=== PATIENT | female | born 1955 | race Two or more races ===

== ENCOUNTER 2020-07-23 07:18 | Emergency (ER) | payer OTHER ==
--- OUTSIDE RECORDS SUMMARY | 2020-07-23 07:31 | XMS ---
:1955 [facility] Providers Name Role Phone ED STAFF PHYSICIAN Unavailable Unavailable ED STAFF PHYSICIAN Unavailable Unavailable ED STAFF PHYSICIAN Unavailable Unavailable LENNY JAQUEZ Unavailable Unavailable ED STAFF PHYSICIAN Unavailable Unavailable Re-disclosure Warning The records that you are about to access may contain information from federally- assisted alcohol or drug abuse programs. If such information is present, then the following federally mandated warning applies: This information has been disclosed to you from records protected by federal confidentiality rules (42 CFR part 2). The federal rules prohibit you from making any further disclosure of this information unless further disclosure is expressly permitted by the written consent of the person to whom it pertains or as otherwise permitted by 42 CFR part 2. A general authorization for the release of medical or other information is NOT sufficient for this purpose. The Federal rules restrict any use of the information to criminally investigate or prosecute any alcohol or drug abuse patient.The records that you are about to access may contain highly sensitive health information, the redisclosure of which is protected by Article 27-F of the [facility] Public Health law. If you continue you may haveaccess to information: Regarding HIV / AIDS; Provided by facilities licensed or operated by the [facility] Office of Mental Health; or Provided by the [facility] Office for People With Developmental Disabilities. If such information is present, then the following [facility] mandated warning applies: This information has been disclosed to you from confidential records which are protected by state law. State law prohibits you from making any further disclosure of this information without the specific written consent of the person to whom it pertains, or as otherwise permitted by law. Any unauthorized further disclosure in violation of state law may result in a fine or halfway sentence or both. A general authorization for the release of medical or other information is NOT sufficient authorization for further disclosure. Encounters Encounter Providers Location Date Indications Data Source(s ) Emergency Attender: ORIN ED H 06/12/2020 [facility] STAFF 11:05:00 AM EDT Medical C enter PHYSICIANAttender: - 06/12/2020 [facility] STAFF 05:34:00 PM EDT PHYSICIANAttender: STAFF ED STAFF PHYSICIANAdmitter: [facility] ED STAFF PHYSICIAN Patient discharged. Emergency Attender: ED STAFF H 04/12/2020 05:26:00 PM [facility] PHYSICIANAttender: STAFF ED EDT - 04/12/2020 [facility] Center STAFF PHYSICIANAdmitter: ED 07:28:00 PM EDT STAFF PHYSICIANReferrer: STAFF ED STAFF PHYSICIAN Patient discharged. Outpatient Attender: THOMAS GUZMAN 12/12/2019 09:41:00 [facility] SHIUANReferrer: THOMAS JAQUEZ Outpatient Attender: THOMAS GUZMAN 12/05/2019 08:10[facility] SHIUANReferrer: THOMAS JAQUEZ [facility] H 08/27/2019 04:23:00 PM [facility] EDT - 08/27/2019 [facility] Center 11:03:00 PM EDT Patient discharged. Outpatient Attender: THOMAS GUZMAN 05/15/2019 09:41:00 [facility] SHIUANReferrer: THOMAS JAQUEZ Outpatient Attender: THOMAS GUZMAN 02/09/2019 08:42:00 AM [facility] SHIUANReferrer: THOMAS JAQUEZ Medications Medication Brand Start Product Dose Route Administrative Pharm[facility] Indications Reaction Description Data Name Date Form Instructions Instructions Source(s) Ciprofloxac ciprof 1 complet Ryaray nt in 500 MG loxaci [facility] Oral Tablet n HCl Medical ciprofloxac 500 mg Center in HCl 500 Tablet mg Tablet, , Ordered By: Armando marcum By: Evelin Marquez MDDirection Norman s: 1 tablet s, oral every MDDire twelve ctions hours : 1 tablet oral every twelve hours pantoprazol pantop 1 complet Rayray nt e 40 MG razole ed [facility] Delayed 40 mg Medical Release tablet Center Oral Tablet ,delay pantoprazol ed e 40 mg releas tablet,chandana e yed release (/EC (/EC), ), Ordered By: Armando marcum By: Mayelin Silveira PADirection мария s: 1 tablet Adam oral daily a, before PADire breakfast ctions : 1 tablet oral daily before breakf ast loratadine complet [facility] 10 mg [facility] losartan 25 complet [facility] mg Tablet [facility] Insurance Providers Payer name Policy type Policy ID Covered Covered alliance party's Policy P terese / Coverage alliance party ID relationship to Tang Inf ormation type tang GREG [id number] SP [id number] 500 ESSENTIAL PLAN 3 4 O GREG O [id number] 01 [id number] 500 ESSENTIALS-CO MMERCIAL O GREG [id number] SP [id number] 500 HEALTH NON CAP Problems, Conditions, and Diagnoses Code Display Name Description Problem Type Effective Data Dates Source(s) I10 Essential (primary) ESSENTIAL Diagnosis 06/12/2020 [facility] hypertension (PRIMARY) 11:05:00 AM Medical HYPERTENSION EDT Center R10.9 Unspecified UNSPECIFIED Diagnosis 06/12/2020 [facility] abdominal pain ABDOMINAL PAIN 11:05:00 AM Medic al EDT Center F41.9 Anxiety disorder, ANXIETY DISORDER, Diagnosis 04/12/2020 [facility] unspecified UNSPECIFIED 05:26:00 PM Medical EDT Center R07.89 Other chest pain OTHER CHEST PAIN Diagnosis 04/12/2020 int [facility] 05:26:00 PM Medical EDT Center Z12.31 Encounter for ENCNTR SCREEN Diagnosis 12/12/2019 [facility] mammogram MAMMOGRAM FOR 09:41:00 AM M edical for malignant MALIGNANT NEOPLASM EST Eric ter neoplasm of breast OF BREAST K57.90 Diverticulosis of DVRTCLOS OF Diagnosis 08/27/2019 [facility] intestine, part INTEST, PART UNSP, 04:23:00 PM Medical unspecified, W/O PERF OR EDT Center without perforation ABSCESS W/O BLEED or abscess without bleeding 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 08/27/2019 Elizabet zhang [facility] gland, unspecified ADRENAL GLAND, 04:23:00 PM M edical UNSPECIFIED EDT Center N39.0 Urinary tract URINARY TRACT Diagnosis 08/27/2019 [facility] infection, site not INFECTION, SITE 04:23:00 PM Medical specified NOT SPECIFIED EDT Center Z04.89 ENCOUNTER FOR ENCOUNTER FOR Diagnosis 08/27/2019 [facility] EXAMINATION AND EXAMINATION AND 04:23:00 PM Med ical OBSERVATION FOR OTH OBSERVATION FOR EDT Center REASONS OTH REASONS J45.909 Unspecified asthma, UNSPECIFIED Diagnosis 02/09/2019 Elizabet zhang [facility] uncomplicated ASTHMA, 08:42:00 AM Medical UNCOMPLICATED EDT Center Results ID Date Data Source Urinalysis.[id number] 06/12/2020 12:00:00 PM [facility] Name Value Range Interpretation Description Data Sup porting Code Source(s) Document(s ) Glucose NEGATIVE <content [facility] [Mass/volume] styleCode="Adilson Sh[place] in Urine by d">Urine Medical Test strip Glucose Center </content>NEGA TIVE MG/DL<content styleCode="Мария lics"> (NEGATIVE MG/DL)</conten t> Ketones NEGATIVE <content [facility] [Mass/volume] styleCode="Adilson [place]ell in Urine by d">Urine Medical Test strip Ketone Center </content>NEGA TIVE MG/DL<content styleCode="Мария lics"> (NEGATIVE MG/DL)</conten t> UNK NEGATIVE <content [facility] styleCode="Adilson Sh[place]ell d">Urine Medical Bilirubin Center </content>NEGA TIVE <content styleCode="Мария lics"> (NEGATIVE )</content> UNK CLEAR <content [facility] styleCode="Adilson [place]ell d">Urine Medical Clarity Center </content>ANTONIETTA R <content styleCode="Мария lics"> (CLEAR )</content> Color of Urine YELLOW <content [facility] styleCode="Adilson [facility]ell d">Color, Medical Urine Center </content>YELL OW <content styleCode="Мария lics"> (YELLOW )</content> pH of Urine by 4.5-8.0 <content [facility] Test strip styleCode="Adilson Shantell d">Urine pH Medical </content>7.5 Center <content styleCode="Мария lics"> (4.5-8.0 )</content> Specific 1.015-1.02 <content [facility] gravity of 5 styleCode="Adilson Dorant[place] Urine by Test d">Urine Medical strip Specific Center [place] </content>1.02 0 <content styleCode="Мария lics"> (1.015-1.025 )</content> Hemoglobin NEGATIVE <content [facility] [Presence] in styleCode="Adilson Dorantess Urine by Test d">Urine Blood Medical strip </content>TRAC Center E <content styleCode="Мария lics"> (NEGATIVE )</content> Protein NEGATIVE <content [facility] [Mass/volume] styleCode="Adilson Dorant[place] in Urine by d">Urine Medical Test strip Protein Center </content>NEGA TIVE MG/DL<content styleCode="Мария lics"> (NEGATIVE MG/DL)</conten t> UNK 0-3 <content [facility] styleCode="Adilson Shantell d">Urine Red Medical Blood Cell Center </content>3-5 HPF<content styleCode="Мария lics"> (0-3 HPF)</content> UNK 0-3 <content [facility] styleCode="Adilson Shantell d">Urine White Medical Blood Cell Center </content>0-3 HPF<content styleCode="Мария lics"> (0-3 HPF)</content> Leukocyte NEGATIVE <content [facility] esterase styleCode="Adilson Shantell [Presence] in d">Urine Medical Urine by Test Leukocyte Center strip </content>NEGA TIVE <content styleCode="Мария lics"> (NEGATIVE )</content> Urobilinogen 0.2-1.0 <content [facility] [Units/volume] styleCode="Adilsno St[facility] in Urine by d">Urine Medical Test strip Urobilinogen Center </content>0.2 MG/DL<content styleCode="Мария lics"> (0.2-1.0 MG/DL)</conten t> Nitrite NEGATIVE <content [facility] [Presence] in styleCode="Adilson Stinson Urine by Test d">Urine Medical strip Nitrite Center </content>NEGA TIVE <content styleCode="Мария lics"> (NEGATIVE )</content> UNK NEGATIVE <content [facility] styleCode="Adilson Dorantess d">Urine Medical Bacteria Center </content>FEW HPF<content styleCode="Мария lics"> (NEGATIVE HPF)</content> UNK NONE SEEN <content [facility] styleCode="Adilson Dorantess d">Epithelial Medical Cell Center </content>5 - 10 HPF<content styleCode="Мария lics"> (NONE SEEN HPF)</content> ID Date Data Source Liver 06/12/2020 12:00:00 PM EDT [facility] Profile.[id number] Name Value Range Interpretation Description Data Sup porting Code Source(s) Document(s ) Aspartate 14-36 <content [facility] aminotransferase styleCode="Bold"> Lucian hs [Enzymatic Aspartate Medical activity/volume] Aminotransferase Center in Serum or Plasma (AST) </content>22 IU/L<content styleCode="Italic s"> (14-36 IU/L)</content> Bilirubin.total 0.2-1.3 <content [facility] [Mass/volume] in styleCode="Bold"> Lucian hs Serum or Plasma Bilirubin Total Medical </content>0.3 Center MG/DL<content styleCode="Italic s"> (0.2-1.3 MG/DL)</content> Alkaline 38-126 <content [facility] phosphatase styleCode="Bold"> [facility] [Enzymatic Alkaline Medical activity/volume] Phosphatase (ALP) Cente r in Serum or Plasma </content>106 IU/L<content styleCode="Italic s"> (38-126 IU/L)</content> Alanine 7-30 <content [facility] aminotransferase styleCode="Bold"> Lucian hs [Enzymatic Alanine Medical activity/volume] Aminotransferase Center in Serum or Plasma (ALT) </content>19 IU/L<content styleCode="Italic s"> (7-30 IU/L)</content> Albumin 3.5-5.0 <content [facility] [Mass/volume] in styleCode="Bold"> Lucian hs Serum or Plasma Albumin Medical </content>4.5 Center G/DL<content styleCode="Italic s"> (3.5-5.0 G/DL)</content> UNK 0.0-0.3 <content [facility] styleCode="Bold"> [place] Bilirubin, Direct Medical </content>< 0.2 Center MG/DL<content styleCode="Italic s"> (0.0-0.3 MG/DL)</content> ID Date Data Source HematologyRou.[id number] 06/12/2020 12:00:00 PM EDT [facility] 0400 Name Value Range Interpretation Description Data Sup porting Code Source(s) Document(s ) Hemoglobin 12.3-16. <content [facility] [Mass/volume] in 0 styleCode="Bold [facility] Blood ">Hemoglobin Medical </content>13.5 Center G/DL<content styleCode="Ital ics"> (12.3-16.0 G/DL)</content> Erythrocytes 4.0-5.1 <content [facility] [#/volume] in styleCode="Bold [facility] Blood by ">Red Blood Medical Automated count Cell Count Center </content>4.40 MCUMM<content styleCode="Ital ics"> (4.0-5.1 MCUMM)</content > Leukocytes 4.4-11.0 <content [facility] [#/volume] in styleCode="Bold [place]ll Blood by ">White Blood Medical Automated count Cell Count Center </content>4.72 KCUMM<content styleCode="Ital ics"> (4.4-11.0 KCUMM)</content > Hematocrit 36.0-46. <content [facility] [Volume 0 styleCode="Bold [facility] Fraction] of ">Hematocrit Medical Blood by </content>40.8 Center Automated count %<content styleCode="Ital ics"> (36.0-46.0 %)</content> Erythrocyte mean 26.0-34. <content [facility] corpuscular 0 styleCode="Bold [facility] hemoglobin ">Mean Medical [Entitic mass] Corposcular Center by Automated Hemoglobin count </content>30.7 PG<content styleCode="Ital ics"> (26.0-34.0 PG)</content> Erythrocyte 11.5-14. <content [facility] distribution 5 styleCode="Bold [place] width [Ratio] by ">Red Cell Medical Automated count Distribution Center Width </content>12.9 %<content styleCode="Ital ics"> (11.5-14.5 %)</content> Erythrocyte mean 32.0-37. <content [facility] corpuscular 0 styleCode="Bold [facility] hemoglobin ">Mean Corpus. Medical concentration Hgb Center [Mass/volume] by Concentration Automated count (MCHC) </content>33.1 G/DL<content styleCode="Ital ics"> (32.0-37.0 G/DL)</content> Erythrocyte mean 80.0-100 <content [facility] corpuscular .0 styleCode="Bold [facility] volume [Entitic ">Mean Medical volume] by Corpuscular Center Automated count Volume </content>92.7 FL<content styleCode="Ital ics"> (80.0-100.0 FL)</content> Platelets 130-400 <content [facility] [#/volume] in styleCode="Bold [place] Blood by ">Platelet Medical Automated count Count Center </content>340 KCUMM<content styleCode="Ital ics"> (130-400 KCUMM)</content > UNK 0 <content [facility] styleCode="Bold [facility] ">Nucleated Red Medical Blood Cell Center </content>0.0 /100<content styleCode="Ital ics"> (0 /100)</content> UNK 0.0 <content [facility] styleCode="Bold [facility] ">Nucleated Red Medical Blood Cell Center Count </content>0.00 KCUMM<content styleCode="Ital ics"> (0.0 KCUMM)</content > Platelet mean 8.0-11.0 <content [facility] volume [Entitic styleCode="Bold Sh[facility]ell volume] in Blood ">Mean Platelet Medical by Automated Volume Center count </content>9.7 FL<content styleCode="Ital ics"> (8.0-11.0 FL)</content> ID Date Data Source GFR(Creatinine).[id number] 06/12/2020 12:00:00 PM EDT [facility] 0-0400 Name Value Range Interpretation Code Description Data Linda rce(s) Supporting Document(s ) UNK > 60 <content [facility] styleCode="Bold"> Medical Cent er EGFR </content>133 GFR<content styleCode="Italic s"> (> 60 GFR)</content> ID Date Data Source CHMROUTINECCDA.[id number] 06/12/2020 12:00:00 PM EDT [facility] -0400 Name Value Range Interpretation Description Data Sup porting Code Source(s) Document(s ) UNK 30-110 <content [facility] styleCode="Bold Medical ">Amylase Center </content>46 IU/L<content styleCode="Ital ics"> (30-110 IU/L)</content> Lipase 23-300 <content [facility] [Enzymatic styleCode="Bold Medical activity/vo ">Lipase Center lume] in </content>50 Serum or IU/L<content Plasma styleCode="Ital ics"> (23-300 IU/L)</content> ID Date Data Source [facility].[id number] 06/12/2020 12:00:00 PM EDT [facility] Name Value Range Interpretation Description Data Sup porting Code Source(s) Document(s ) Sodium 137-145 <content [facility] [Moles/volume] in styleCode="Bold"> Sammy phs Serum or Plasma Sodium Medical </content>139 Center MEQ/L<content styleCode="Italic s"> (137-145 MEQ/L)</content> Potassium 3.5-5.3 <content [facility] [Moles/volume] in styleCode="Bold"> Sammy phs Serum or Plasma Potassium Medical </content>4.1 Center MEQ/L<content styleCode="Italic s"> (3.5-5.3 MEQ/L)</content> Creatinine 0.5-1.3 <content [facility] [Mass/volume] in styleCode="Bold"> Lucian hs Serum or Plasma Creatinine Medical </content>0.5 Center MG/DL<content styleCode="Italic s"> (0.5-1.3 MG/DL)</content> UNK 7-17 Below low <content [facility] normal styleCode="Bold"> [facility] BUN </content>6 Medical MG/DL L<content Center styleCode="Italic s"> (7-17 MG/DL)</content> Carbon dioxide, 22-30 Below low <content [facility] total normal styleCode="Bold"> [place] [Moles/volume] in Carbon Dioxide Medical Serum or Plasma </content>21 Center MEQ/L L<content styleCode="Italic s"> (22-30 MEQ/L)</content> Glucose 74-106 Above high <content [facility] [Mass/volume] in normal styleCode="Bold"> [facility] hs Serum or Plasma Glucose Medical </content>108 Center MG/DL H<content styleCode="Italic s"> (74-106 MG/DL)</content> Chloride 98-107 Above high <content [facility] [Moles/volume] in normal styleCode="Bold"> Asmmy phs Serum or Plasma Chloride Medical </content>108 Center MEQ/L H<content styleCode="Italic s"> (98-107 MEQ/L)</content> Alanine 7-30 <content [facility] aminotransferase styleCode="Bold"> Lcuian hs [Enzymatic Alanine Medical activity/volume] Aminotransferase Center in Serum or Plasma (ALT) </content>19 IU/L<content styleCode="Italic s"> (7-30 IU/L)</content> Alkaline 38-126 <content [facility] phosphatase styleCode="Bold"> [place] [Enzymatic Alkaline Medical activity/volume] Phosphatase (ALP) Cente r in Serum or Plasma </content>106 IU/L<content styleCode="Italic s"> (38-126 IU/L)</content> Calcium 8.4-10. <content [facility] [Mass/volume] in 2 styleCode="Bold"> Lucian hs Serum or Plasma Calcium Medical </content>10.0 Center MG/DL<content styleCode="Italic s"> (8.4-10.2 MG/DL)</content> Aspartate 14-36 <content [facility] aminotransferase styleCode="Bold"> [facility] hs [Enzymatic Aspartate Medical activity/volume] Aminotransferase Center in Serum or Plasma (AST) </content>22 IU/L<content styleCode="Italic s"> (14-36 IU/L)</content> UNK > 60 <content [facility] styleCode="Bold"> [facility] EGFR Medical </content>133 Center GFR<content styleCode="Italic s"> (> 60 GFR)</content> Bilirubin.total 0.2-1.3 <content [facility] [Mass/volume] in styleCode="Bold"> Lucian hs Serum or Plasma Bilirubin Total Medical </content>0.3 Center MG/DL<content styleCode="Italic s"> (0.2-1.3 MG/DL)</content> Albumin 3.5-5.0 <content [facility] [Mass/volume] in styleCode="Bold"> Lucian hs Serum or Plasma Albumin Medical </content>4.5 Center G/DL<content styleCode="Italic s"> (3.5-5.0 G/DL)</content> ID Date Data Source [id number] 04/15/2020 10:31:00 AM EDT [facility] Name Value Range Interpretation Code Description Data Linda rce(s) Supporting Document(s ) SARS-COV-2 [place] This lab was ordered by [facility] and reported by [employer] 2000. ID Date Data Source Urinalysis.[id number] 08/27/2019 06:40:00 PM EDT [facility] 0 Name Value Range Interpretation Description Data Sup porting Code Source(s) Document(s ) Glucose NEGATIVE <content [facility] [Mass/volume] styleCode="Adilson Stinson in Urine by d">Urine Medical Test strip Glucose Center </content>NEGA TIVE MG/DL<content styleCode="Мария lics"> (NEGATIVE MG/DL)</conten t> Color of Urine YELLOW <content [facility] styleCode="Adilson Shantell d">Color, Medical Urine Center </content>YELL OW <content styleCode="Мария lics"> (YELLOW )</content> UNK CLEAR <content [facility] styleCode="Adilson Shantell d">Urine Medical Clarity Center </content>Sl CLOUDY <content styleCode="Мария lics"> (CLEAR )</content> Specific 1.015-1.02 <content [facility] gravity of 5 styleCode="Adilson Dorantess Urine by Test d">Urine Medical strip Specific Center [place] </content>1.01 5 <content styleCode="Мария lics"> (1.015-1.025 )</content> Ketones NEGATIVE <content [facility] [Mass/volume] styleCode="Adilson Dorantess in Urine by d">Urine Medical Test strip Ketone Center </content>NEGA TIVE MG/DL<content styleCode="Мария lics"> (NEGATIVE MG/DL)</conten t> UNK NEGATIVE <content [facility] styleCode="Adilson Shantell d">Urine Medical Bilirubin Center </content>NEGA TIVE <content styleCode="Мария lics"> (NEGATIVE )</content> Protein NEGATIVE <content [facility] [Mass/volume] styleCode="Adilson Dorantess in Urine by d">Urine Medical Test strip Protein Center </content>NEGA TIVE MG/DL<content styleCode="Мария lics"> (NEGATIVE MG/DL)</conten t> Hemoglobin NEGATIVE <content [facility] [Presence] in styleCode="Adilson Dorantess Urine by Test d">Urine Blood Medical strip </content>NEGA Center TIVE <content styleCode="Мария lics"> (NEGATIVE )</content> pH of Urine by 4.5-8.0 <content [facility] Test strip styleCode="Adilson Shantell d">Urine pH Medical </content>6.0 Center <content styleCode="Мария lics"> (4.5-8.0 )</content> Urobilinogen 0.2-1.0 <content [facility] [Units/volume] styleCode="Adilson Stinson in Urine by d">Urine Medical Test strip Urobilinogen Center </content>0.2 MG/DL<content styleCode="Мария lics"> (0.2-1.0 MG/DL)</conten t> UNK 0-3 <content [facility] styleCode="Adilson Shantell d">Urine Red Medical Blood Cell Center </content>0-3 HPF<content styleCode="Мария lics"> (0-3 HPF)</content> Nitrite NEGATIVE <content [facility] [Presence] in styleCode="Adilson Stinson Urine by Test d">Urine Medical strip Nitrite Center </content>NEGA TIVE <content styleCode="Мария lics"> (NEGATIVE )</content> Leukocyte NEGATIVE <content [facility] esterase styleCode="Adilson Stinson [Presence] in d">Urine Medical Urine by Test Leukocyte Center strip </content>TRAC E <content styleCode="Мария lics"> (NEGATIVE )</content> UNK 0-3 <content [facility] styleCode="Adilson Shantell d">Urine White Medical Blood Cell Center </content>5 - 10 HPF<content styleCode="Мария lics"> (0-3 HPF)</content> UNK NONE SEEN <content [facility] styleCode="Adilson Shantell d">Epithelial Medical Cell Center </content>5 - 10 HPF<content styleCode="Мария lics"> (NONE SEEN HPF)</content> UNK NEGATIVE <content [facility] styleCode="Adilson Shantell d">Urine Medical Bacteria Center </content>FEW HPF<content styleCode="Мария lics"> (NEGATIVE HPF)</content> ID Date Data Source Microbiology.[id number] 08/27/2019 06:40:00 PM EDT [facility] 400 Name Value Range Interpretation Code Description Data Linda rce(s) Supporting Document(s ) UNK <item><content [facility] styleCode="Bold">Cu Medical Ce nter lture Status </content>
<tab le><tbody><tr><td>S pecimen Number:</td><td>[id number]</td></tr><tr ><td>Sample Collection Date/Time: </td><td>08/27/2019 6:40 PM</td></tr><tr><td >Specimen Source:</td><td>URI NE</td></tr><tr><td >Culture Status:</td><td>Fin al </td></tr><tr><td>C ulture Report:</td><td>PLE ASE REPEAT SPECIMEN COLLECTION </td></tr><tr><td>U rine Culture:</td><td>Co llection Plate Date: 08/27/2019 18:49 </td></tr><tr><td>O rganism 1:</td><td>VIRIDANS STREPTOCOCCUS GROUP </td></tr><tr><td>O rganism 2:</td><td>COAGULAS E NEGATIVE STAPHYLOCOCCUS </td></tr><tr><td>O rganism 3:</td><td>GRAM NEGATIVE BACILLI </td></tr></tbody>< /table>
<table border="2"><tbody>< tr><td></td><td>1</ td><td>2</td><td>3< /td></tr><tr><td>Co mment</td><td></td> <td></td><td></td>< /tr><tr><td>Result Value</td><td>VIRID ANS STREPTOCOCCUS GROUP </td><td>COAGULASE NEGATIVE STAPHYLOCOCCUS </td><td>GRAM NEGATIVE BACILLI </td></tr><tr><td>R esult Status</td><td>Ada l Result</td><td>Ada l Result</td><td>Ada l Result</td></tr><tr ><td></td><td></td> <td></td><td></td>< /tr></tbody></table ></item> ID Date Data Source Liver 08/27/2019 05:45:00 PM EDT [facility] Profile.[id number] Name Value Range Interpretation Description Data Sup porting Code Source(s) Document(s ) Aspartate 14-36 <content [facility] aminotransferase styleCode="Bold"> [facility] hs [Enzymatic Aspartate Medical activity/volume] Aminotransferase Center in Serum or Plasma (AST) </content>24 IU/L<content styleCode="Italic s"> (14-36 IU/L)</content> Alkaline 38-126 <content [facility] phosphatase styleCode="Bold"> [facility] [Enzymatic Alkaline Medical activity/volume] Phosphatase (ALP) Cente r in Serum or Plasma </content>116 IU/L<content styleCode="Italic s"> (38-126 IU/L)</content> Alanine 7-30 <content [facility] aminotransferase styleCode="Bold"> Lucian hs [Enzymatic Alanine Medical activity/volume] Aminotransferase Center in Serum or Plasma (ALT) </content>21 IU/L<content styleCode="Italic s"> (7-30 IU/L)</content> Bilirubin.total 0.2-1.3 Below low <content [facility] [Mass/volume] in normal styleCode="Bold"> Lucian hs Serum or Plasma Bilirubin Total Medical </content>< 0.2 Center MG/DL L<content styleCode="Italic s"> (0.2-1.3 MG/DL)</content> UNK 0.0-0.3 <content [facility] styleCode="Bold"> [place] Bilirubin, Direct Medical </content>< 0.2 Center MG/DL<content styleCode="Italic s"> (0.0-0.3 MG/DL)</content> Albumin 3.5-5.0 <content [facility] [Mass/volume] in styleCode="Bold"> Lucian hs Serum or Plasma Albumin Medical </content>4.7 Center G/DL<content styleCode="Italic s"> (3.5-5.0 G/DL)</content> ID Date Data Source HematologyRou.[id number] 08/27/2019 05:45:00 PM EDT [facility] 0400 Name Value Range Interpretation Description Data Sup porting Code Source(s) Document(s ) Erythrocytes 4.0-5.1 <content [facility] [#/volume] in styleCode="Bold [facility] Blood by ">Red Blood Medical Automated count Cell Count Center </content>4.34 MCUMM<content styleCode="Ital ics"> (4.0-5.1 MCUMM)</content > Hemoglobin 12.3-16. <content [facility] [Mass/volume] in 0 styleCode="Bold [facility] Blood ">Hemoglobin Medical </content>13.0 Center G/DL<content styleCode="Ital ics"> (12.3-16.0 G/DL)</content> Leukocytes 4.4-11.0 <content [facility] [#/volume] in styleCode="Bold [place] Blood by ">White Blood Medical Automated count Cell Count Center </content>5.17 KCUMM<content styleCode="Ital ics"> (4.4-11.0 KCUMM)</content > Erythrocyte mean 80.0-100 <content [facility] corpuscular .0 styleCode="Bold [facility] volume [Entitic ">Mean Medical volume] by Corpuscular Center Automated count Volume </content>91.0 FL<content styleCode="Ital ics"> (80.0-100.0 FL)</content> Erythrocyte mean 26.0-34. <content [facility] corpuscular 0 styleCode="Bold [facility] hemoglobin ">Mean Medical [Entitic mass] Corposcular Center by Automated Hemoglobin count </content>30.0 PG<content styleCode="Ital ics"> (26.0-34.0 PG)</content> Hematocrit 36.0-46. <content [facility] [Volume 0 styleCode="Bold [facility] Fraction] of ">Hematocrit Medical Blood by </content>39.5 Center Automated count %<content styleCode="Ital ics"> (36.0-46.0 %)</content> Platelet mean 8.0-11.0 <content [facility] volume [Entitic styleCode="Bold [facility] volume] in Blood ">Mean Platelet Medical by Automated Volume Center count </content>10.4 FL<content styleCode="Ital ics"> (8.0-11.0 FL)</content> Erythrocyte 11.5-14. <content [facility] distribution 5 styleCode="Bold [facility] width [Ratio] by ">Red Cell Medical Automated count Distribution Center Width </content>13.0 %<content styleCode="Ital ics"> (11.5-14.5 %)</content> Platelets 130-400 <content [facility] [#/volume] in styleCode="Bold [facility] Blood by ">Platelet Medical Automated count Count Center </content>312 KCUMM<content styleCode="Ital ics"> (130-400 KCUMM)</content > Erythrocyte mean 32.0-37. <content [facility] corpuscular 0 styleCode="Bold [facility] hemoglobin ">Mean Corpus. Medical concentration Hgb Center [Mass/volume] by Concentration Automated count (MCHC) </content>32.9 G/DL<content styleCode="Ital ics"> (32.0-37.0 G/DL)</content> UNK 0.0 <content Saint styleCode="Bold [facility] ">Nucleated Red Medical Blood Cell Center Count </content>0.00 KCUMM<content styleCode="Ital ics"> (0.0 KCUMM)</content > UNK 0 <content [facility] styleCode="Bold [facility] ">Nucleated Red Medical Blood Cell Center </content>0.0 /100<content styleCode="Ital ics"> (0 /100)</content> ID Date Data Source GFR(Creatinine).[id number] 08/27/2019 05:45:00 PM EDT [facility] 0-0400 Name Value Range Interpretation Code Description Data Linda rce(s) Supporting Document(s ) UNK > 60 <content [facility] styleCode="Bold"> Medical Cent er EGFR </content>133 GFR<content styleCode="Italic s"> (> 60 GFR)</content> ID Date Data Source CHMROUTINECCDA.[id number] 08/27/2019 05:45:00 PM EDT [facility] -0400 Name Value Range Interpretation Description Data Sup porting Code Source(s) Document(s ) Lipase 23-300 <content [facility] [Enzymatic styleCode="Bold Medical activity/vo ">Lipase Center lume] in </content>43 Serum or IU/L<content Plasma styleCode="Ital ics"> (23-300 IU/L)</content> UNK 30-110 <content [facility] styleCode="Bold Medical ">Amylase Center </content>58 IU/L<content styleCode="Ital ics"> (30-110 IU/L)</content> ID Date Data Source CardiacMarkers.[id number] 08/27/2019 05:45:00 PM EDT [facility] -0400 Name Value Range Interpretation Description Data Sup porting Code Source(s) Document(s ) Troponin < 0.034 <content [facility] I.cardiac styleCode="Bold [facility] [Mass/volume ">Troponin I Medical ] in Serum </content>< Center or Plasma 0.012 NG/ML<content styleCode="Ital ics"> (< 0.034 NG/ML)</content > ID Date Data Source [facility].[id number] 08/27/2019 05:45:00 PM EDT [facility] Name Value Range Interpretation Description Data Sup porting Code Source(s) Document(s ) Sodium 137-145 <content [facility] [Moles/volume] in styleCode="Bold"> [facility] Serum or Plasma Sodium Medical </content>140 Center MEQ/L<content styleCode="Italic s"> (137-145 MEQ/L)</content> Chloride 98-107 <content [facility] [Moles/volume] in styleCode="Bold"> [facility] Serum or Plasma Chloride Medical </content>107 Center MEQ/L<content styleCode="Italic s"> (98-107 MEQ/L)</content> Potassium 3.5-5.3 <content [facility] [Moles/volume] in styleCode="Bold"> Sammy phs Serum or Plasma Potassium Medical </content>4.8 Center MEQ/L<content styleCode="Italic s"> (3.5-5.3 MEQ/L)</content> Creatinine 0.5-1.3 <content [facility] [Mass/volume] in styleCode="Bold"> Lucian hs Serum or Plasma Creatinine Medical </content>0.5 Center MG/DL<content styleCode="Italic s"> (0.5-1.3 MG/DL)</content> UNK 7-17 <content [facility] styleCode="Bold"> [place] BUN </content>9 Medical MG/DL<content Center styleCode="Italic s"> (7-17 MG/DL)</content> Carbon dioxide, 22-30 <content [facility] total styleCode="Bold"> [place] [Moles/volume] in Carbon Dioxide Medical Serum or Plasma </content>26 Center MEQ/L<content styleCode="Italic s"> (22-30 MEQ/L)</content> Glucose 74-106 <content [facility] [Mass/volume] in styleCode="Bold"> Lucian hs Serum or Plasma Glucose Medical </content>103 Center MG/DL<content styleCode="Italic s"> (74-106 MG/DL)</content> Alanine 7-30 <content [facility] aminotransferase styleCode="Bold"> Lucian hs [Enzymatic Alanine Medical activity/volume] Aminotransferase Center in Serum or Plasma (ALT) </content>21 IU/L<content styleCode="Italic s"> (7-30 IU/L)</content> Aspartate 14-36 <content [facility] aminotransferase styleCode="Bold"> Lucian hs [Enzymatic Aspartate Medical activity/volume] Aminotransferase Center in Serum or Plasma (AST) </content>24 IU/L<content styleCode="Italic s"> (14-36 IU/L)</content> UNK > 60 <content [facility] styleCode="Bold"> [place] EGFR Medical </content>133 Center GFR<content styleCode="Italic s"> (> 60 GFR)</content> Calcium 8.4-10. <content [facility] [Mass/volume] in 2 styleCode="Bold"> Lucian hs Serum or Plasma Calcium Medical </content>10.2 Center MG/DL<content styleCode="Italic s"> (8.4-10.2 MG/DL)</content> Albumin 3.5-5.0 <content [facility] [Mass/volume] in styleCode="Bold"> Lucian hs Serum or Plasma Albumin Medical </content>4.7 Center G/DL<content styleCode="Italic s"> (3.5-5.0 G/DL)</content> Alkaline 38-126 <content [facility] phosphatase styleCode="Bold"> [place] [Enzymatic Alkaline Medical activity/volume] Phosphatase (ALP) Cente r in Serum or Plasma </content>116 IU/L<content styleCode="Italic s"> (38-126 IU/L)</content> Bilirubin.total 0.2-1.3 Below low <content [facility] [Mass/volume] in normal styleCode="Bold"> Lucian hs Serum or Plasma Bilirubin Total Medical </content>< 0.2 Center MG/DL L<content styleCode="Italic s"> (0.2-1.3 MG/DL)</content> ID Date Data Source Urinalysis.[id number] 05/15/2019 10:15:00 AM EDT [facility] 0 Name Value Range Interpretation Description Data Sup porting Code Source(s) Document(s ) Glucose NEGATIVE <content [facility] [Mass/volume] styleCode="Adilson Stinson in Urine by d">Urine Medical Test strip Glucose Center </content>NEGA TIVE MG/DL<content styleCode="Мария lics"> (NEGATIVE MG/DL)</conten t> Color of Urine YELLOW <content [facility] styleCode="Adilson Stinson d">Color, Medical Urine Center </content>YELL OW <content styleCode="Мария lics"> (YELLOW )</content> UNK CLEAR <content Saint styleCode="Adilson Dorantess d">Urine Medical Clarity Center </content>ANTONIETTA R <content styleCode="Мария lics"> (CLEAR )</content> Ketones NEGATIVE <content [facility] [Mass/volume] styleCode="Adilson Shantell in Urine by d">Urine Medical Test strip Ketone Center </content>NEGA TIVE MG/DL<content styleCode="Мария lics"> (NEGATIVE MG/DL)</conten t> UNK NEGATIVE <content [facility] styleCode="Adilson Shantell d">Urine Medical Bilirubin Center </content>NEGA TIVE <content styleCode="Мария lics"> (NEGATIVE )</content> Specific 1.015-1.02 <content [facility] gravity of 5 styleCode="Adilson Shantell Urine by Test d">Urine Medical strip Specific Center [place] </content>1.02 0 <content styleCode="Мария lics"> (1.015-1.025 )</content> Protein NEGATIVE <content [facility] [Mass/volume] styleCode="Adilson Shantell in Urine by d">Urine Medical Test strip Protein Center </content>NEGA TIVE MG/DL<content styleCode="Мария lics"> (NEGATIVE MG/DL)</conten t> Hemoglobin NEGATIVE <content [facility] [Presence] in styleCode="Adilson Sahntell Urine by Test d">Urine Blood Medical strip </content>TRAC Center E <content styleCode="Мария lics"> (NEGATIVE )</content> pH of Urine by 4.5-8.0 <content [facility] Test strip styleCode="Adilson Shantell d">Urine pH Medical </content>6.0 Center <content styleCode="Мария lics"> (4.5-8.0 )</content> Urobilinogen 0.2-1.0 <content [facility] [Units/volume] styleCode="Adilson Shantell in Urine by d">Urine Medical Test strip Urobilinogen Center </content>0.2 MG/DL<content styleCode="Мария lics"> (0.2-1.0 MG/DL)</conten t> Leukocyte NEGATIVE <content [facility] esterase styleCode="Adilson Shantell [Presence] in d">Urine Medical Urine by Test Leukocyte Center strip </content>NEGA TIVE <content styleCode="Мария lics"> (NEGATIVE )</content> Nitrite NEGATIVE <content Saint [Presence] in styleCode="[facility] Urine by Test d">Urine Medical strip Nitrite Center </content>NEGA TIVE <content styleCode="Мария lics"> (NEGATIVE )</content> UNK 0-3 <content Saint styleCode="Adilson Stinson d">Urine Red Medical Blood Cell Center </content>0-3 HPF<content styleCode="Мария lics"> (0-3 HPF)</content> ID Date Data Source Liver 05/15/2019 10:15:00 AM EDT [facility] Profile.[id number] Name Value Range Interpretation Description Data Sup porting Code Source(s) Document(s ) Aspartate 14-36 <content [facility] aminotransferase styleCode="Bold"> Lucian hs [Enzymatic Aspartate Medical activity/volume] Aminotransferase Center in Serum or Plasma (AST) </content>22 IU/L<content styleCode="Italic s"> (14-36 IU/L)</content> Alanine 7-30 <content [facility] aminotransferase styleCode="Bold"> Lucian hs [Enzymatic Alanine Medical activity/volume] Aminotransferase Center in Serum or Plasma (ALT) </content>22 IU/L<content styleCode="Italic s"> (7-30 IU/L)</content> Bilirubin.total 0.2-1.3 <content [facility] [Mass/volume] in styleCode="Bold"> Lucian hs Serum or Plasma Bilirubin Total Medical </content>0.3 Center MG/DL<content styleCode="Italic s"> (0.2-1.3 MG/DL)</content> Alkaline 38-126 <content [facility] phosphatase styleCode="Bold"> [place] [Enzymatic Alkaline Medical activity/volume] Phosphatase (ALP) Cente r in Serum or Plasma </content>113 IU/L<content styleCode="Italic s"> (38-126 IU/L)</content> Albumin 3.5-5.0 <content [facility] [Mass/volume] in styleCode="Bold"> Lucian hs Serum or Plasma Albumin Medical </content>4.5 Center G/DL<content styleCode="Italic s"> (3.5-5.0 G/DL)</content> ID Date Data Source LIPID.[id number] 05/15/2019 10:15:00 AM EDT [facility] Center Name Value Range Interpretation Description Data Sup porting Code Source(s) Document(s ) Cholesterol -<200 Above high normal <content [facility] [Mass/volume] in styleCode="Adilson Shantell Serum or Plasma d">Cholesterol Medical </content>225 Center MG/DL H<content styleCode="Мария lics"> (-<200 MG/DL)</conten t> Triglyceride < 150 <content [facility] [Mass/volume] in styleCode="Adilson Shantell Serum or Plasma d">Triglycerid Medical es Center </content>85 MG/DL<content styleCode="Мария lics"> (< 150 MG/DL)</conten t> UNK < 100 Above high normal <content Saint styleCode="Adilson Shantell d">LDL-Cholest [facility] jin Center </content>132 MG/DL H<content styleCode="Мария lics"> (< 100 MG/DL)</conten t> UNK > 60 <content [facility] styleCode="Adilson Shantell d">HDL- Medical Cholesterol Center </content>76 MG/DL<content styleCode="Мария lics"> (> 60 MG/DL)</conten t> ID Date Data Source Hormones.[id number] 05/15/2019 10:15:00 AM EDT [facility] Center Name Value Range Interpretation Description Data Sup porting Code Source(s) Document(s ) UNK 5.53-11. <content [facility] 0 styleCode="Adilson Shantell d">Thyroxine Medical (T4) Center </content>7.72 UG/DL<content styleCode="Мария lics"> (5.53-11.0 UG/DL)</conten t> Thyrotropin 0.465-4. <content [facility] [Units/volume] 68 styleCode="Adilson Shantell in Serum or d">Thyroid Medical Plasma by Stimulating Center Detection Hormone limit <= 0.05 </content>1.98 mIU/L MIU/L<content styleCode="Мария lics"> (0.465-4.68 MIU/L)</conten t> ID Date Data Source HematologyRou.[id number] 05/15/2019 10:15:00 AM EDT [facility] 0400 Name Value Range Interpretation Description Data Sup porting Code Source(s) Document(s ) Leukocytes 4.4-11.0 <content [facility] [#/volume] in styleCode="Bold [facility] Blood by ">White Blood Medical Automated count Cell Count Center </content>5.06 KCUMM<content styleCode="Ital ics"> (4.4-11.0 KCUMM)</content > Hemoglobin 12.3-16. <content [facility] [Mass/volume] in 0 styleCode="Bold [facility] Blood ">Hemoglobin Medical </content>13.8 Center G/DL<content styleCode="Ital ics"> (12.3-16.0 G/DL)</content> Erythrocytes 4.0-5.1 <content [facility] [#/volume] in styleCode="Bold [facility] Blood by ">Red Blood Medical Automated count Cell Count Center </content>4.65 MCUMM<content styleCode="Ital ics"> (4.0-5.1 MCUMM)</content > Hematocrit 36.0-46. <content [facility] [Volume 0 styleCode="Bold [facility] Fraction] of ">Hematocrit Medical Blood by </content>42.1 Center Automated count %<content styleCode="Ital ics"> (36.0-46.0 %)</content> Erythrocyte mean 32.0-37. <content [facility] corpuscular 0 styleCode="Bold [place] hemoglobin ">Mean Corpus. Medical concentration Hgb Center [Mass/volume] by Concentration Automated count (MCHC) </content>32.8 G/DL<content styleCode="Ital ics"> (32.0-37.0 G/DL)</content> Erythrocyte mean 80.0-100 <content [facility] corpuscular .0 styleCode="Bold [facility] volume [Entitic ">Mean Medical volume] by Corpuscular Center Automated count Volume </content>90.5 FL<content styleCode="Ital ics"> (80.0-100.0 FL)</content> Erythrocyte 11.5-14. <content [facility] distribution 5 styleCode="Bold [facility] width [Ratio] by ">Red Cell Medical Automated count Distribution Center Width </content>13.1 %<content styleCode="Ital ics"> (11.5-14.5 %)</content> Erythrocyte mean 26.0-34. <content [facility] corpuscular 0 styleCode="Bold [facility] hemoglobin ">Mean Medical [Entitic mass] Corposcular Center by Automated Hemoglobin count </content>29.7 PG<content styleCode="Ital ics"> (26.0-34.0 PG)</content> Platelets 130-400 <content [facility] [#/volume] in styleCode="Bold [facility] Blood by ">Platelet Medical Automated count Count Center </content>378 KCUMM<content styleCode="Ital ics"> (130-400 KCUMM)</content > Neutrophils 36-66 <content [facility] [#/volume] in styleCode="Bold [facility] Blood by ">Neutrophil Medical Automated count </content>46.0 Center %<content styleCode="Ital ics"> (36-66 %)</content> Platelet mean 8.0-11.0 <content [facility] volume [Entitic styleCode="Bold [facility] volume] in Blood ">Mean Platelet Medical by Automated Volume Center count </content>10.3 FL<content styleCode="Ital ics"> (8.0-11.0 FL)</content> UNK 1.6-7.3 <content [facility] styleCode="Bold [facility] ">Neutrophil Medical Count Center </content>2.33 KCUMM<content styleCode="Ital ics"> (1.6-7.3 KCUMM)</content > Lymphocytes 24.0-44. <content [facility] [#/volume] in 0 styleCode="Bold [facility] Blood by ">Lymphocyte Medical Automated count </content>42.1 Center %<content styleCode="Ital ics"> (24.0-44.0 %)</content> UNK 1.0-4.8 <content [facility] styleCode="Bold [facility] ">Lymphocyte Medical Count Center </content>2.13 KCUMM<content styleCode="Ital ics"> (1.0-4.8 KCUMM)</content > UNK 0.2-0.9 <content [facility] styleCode="Bold [facility] ">Monocyte Medical Count Center </content>0.48 KCUMM<content styleCode="Ital ics"> (0.2-0.9 KCUMM)</content > Monocytes 3.0-10.0 <content [facility] [#/volume] in styleCode="Bold [facility] Blood by ">Monocyte Medical Automated count </content>9.5 Center %<content styleCode="Ital ics"> (3.0-10.0 %)</content> Eosinophils 0-5.0 <content [facility] [#/volume] in styleCode="Bold [facility] Blood by ">Eosinophil Medical Automated count </content>1.6 Center %<content styleCode="Ital ics"> (0-5.0 %)</content> UNK 0.0-0.6 <content [facility] styleCode="Bold [facility] ">Eosinophil Medical Count Center </content>0.08 KCUMM<content styleCode="Ital ics"> (0.0-0.6 KCUMM)</content > Basophils 0.0-1.0 <content [facility] [#/volume] in styleCode="Bold [facility] Blood by ">Basophil Medical Automated count </content>0.8 Center %<content styleCode="Ital ics"> (0.0-1.0 %)</content> UNK 0 <content [facility] styleCode="Bold [facility] ">Nucleated Red Medical Blood Cell Center </content>0.0 /100<content styleCode="Ital ics"> (0 /100)</content> UNK 0.0-0.3 <content [facility] styleCode="Bold [facility] ">Basophil Medical Count Center </content>0.04 KCUMM<content styleCode="Ital ics"> (0.0-0.3 KCUMM)</content > UNK 0.0 <content [facility] styleCode="Bold [facility] ">Nucleated Red Medical Blood Cell Center Count </content>0.00 KCUMM<content styleCode="Ital ics"> (0.0 KCUMM)</content > UNK 0-0.1 <content [facility] styleCode="Bold [facility] ">Immature Medical Granulocyte Center Count </content>0.00 KCUMM<content styleCode="Ital ics"> (0-0.1 KCUMM)</content > UNK < 1 <content [facility] styleCode="Bold [facility] ">Immature Medical Granulocyte Center Ratio </content>0.0 %<content styleCode="Ital ics"> (< 1 %)</content> ID Date Data Source GFR(Creatinine).[id number] 05/15/2019 10:15:00 AM EDT [facility] 0-0400 Name Value Range Interpretation Code Description Data Linda rce(s) Supporting Document(s ) UNK > 60 <content [facility] styleCode="Bold"> Medical Cent er EGFR </content>108 GFR<content styleCode="Italic s"> (> 60 GFR)</content> ID Date Data Source CHMROUTINECCDA.[id number] 05/15/2019 10:15:00 AM EDT [facility] -0400 Name Value Range Interpretation Description Data Sup porting Code Source(s) Document(s ) UNK >= 1.0 <content [facility] styleCode="Bold Medical ">AG Ratio Center </content>1.3 <content styleCode="Ital ics"> (>= 1.0 )</content> UNK 2.3-3.5 <content [facility] styleCode="Bold Medical ">Globulin Center </content>3.4 G/DL<content styleCode="Ital ics"> (2.3-3.5 G/DL)</content> Protein 6.3-8.2 <content [facility] [Mass/volum styleCode="Bold Medical e] in Serum ">Total Protein Center or Plasma </content>7.9 G/DL<content styleCode="Ital ics"> (6.3-8.2 G/DL)</content> ID Date Data Source [facility].[id number] 05/15/2019 10:15:00 AM EDT [facility] Name Value Range Interpretation Description Data Sup porting Code Source(s) Document(s ) Sodium 137-145 <content [facility] [Moles/volume] in styleCode="Bold"> Sammy phs Serum or Plasma Sodium Medical </content>143 Center MEQ/L<content styleCode="Italic s"> (137-145 MEQ/L)</content> Chloride 98-107 <content [facility] [Moles/volume] in styleCode="Bold"> Sammy phs Serum or Plasma Chloride Medical </content>101 Center MEQ/L<content styleCode="Italic s"> (98-107 MEQ/L)</content> Carbon dioxide, 22-30 <content [facility] total styleCode="Bold"> [facility] [Moles/volume] in Carbon Dioxide Medical Serum or Plasma </content>30 Center MEQ/L<content styleCode="Italic s"> (22-30 MEQ/L)</content> Potassium 3.5-5.3 <content [facility] [Moles/volume] in styleCode="Bold"> Sammy phs Serum or Plasma Potassium Medical </content>4.5 Center MEQ/L<content styleCode="Italic s"> (3.5-5.3 MEQ/L)</content> Creatinine 0.5-1.3 <content [facility] [Mass/volume] in styleCode="Bold"> Lucian hs Serum or Plasma Creatinine Medical </content>0.6 Center MG/DL<content styleCode="Italic s"> (0.5-1.3 MG/DL)</content> UNK 7-17 <content [facility] styleCode="Bold"> [facility] BUN </content>10 Medical MG/DL<content Center styleCode="Italic s"> (7-17 MG/DL)</content> Glucose 74-106 <content [facility] [Mass/volume] in styleCode="Bold"> Lucian hs Serum or Plasma Glucose Medical </content>96 Center MG/DL<content styleCode="Italic s"> (74-106 MG/DL)</content> UNK > 60 <content [facility] styleCode="Bold"> [place] EGFR Medical </content>108 Center GFR<content styleCode="Italic s"> (> 60 GFR)</content> Calcium 8.4-10. Above high <content [facility] [Mass/volume] in 2 normal styleCode="Bold"> Lucian hs Serum or Plasma Calcium Medical </content>10.6 Center MG/DL H<content styleCode="Italic s"> (8.4-10.2 MG/DL)</content> Alanine 7-30 <content [facility] aminotransferase styleCode="Bold"> Lucian hs [Enzymatic Alanine Medical activity/volume] Aminotransferase Center in Serum or Plasma (ALT) </content>22 IU/L<content styleCode="Italic s"> (7-30 IU/L)</content> Aspartate 14-36 <content [facility] aminotransferase styleCode="Bold"> Lucian hs [Enzymatic Aspartate Medical activity/volume] Aminotransferase Center in Serum or Plasma (AST) </content>22 IU/L<content styleCode="Italic s"> (14-36 IU/L)</content> Bilirubin.total 0.2-1.3 <content [facility] [Mass/volume] in styleCode="Bold"> Lucian hs Serum or Plasma Bilirubin Total Medical </content>0.3 Center MG/DL<content styleCode="Italic s"> (0.2-1.3 MG/DL)</content> Albumin 3.5-5.0 <content [facility] [Mass/volume] in styleCode="Bold"> Lucian hs Serum or Plasma Albumin Medical </content>4.5 Center G/DL<content styleCode="Italic s"> (3.5-5.0 G/DL)</content> Alkaline 38-126 <content [facility] phosphatase styleCode="Bold"> [facility] [Enzymatic Alkaline Medical activity/volume] Phosphatase (ALP) Cente r in Serum or Plasma </content>113 IU/L<content styleCode="Italic s"> (38-126 IU/L)</content> ID Date Data Source Urinalysis.[id number] 12/05/2018 10:00:00 AM [facility] 0 Name Value Range Interpretation Description Data Sup porting Code Source(s) Document(s ) Color of Urine YELLOW <content [facility] styleCode="Adilson Shantell d">Color, Medical Urine Center </content>YELL OW <content styleCode="Мария lics"> (YELLOW )</content> UNK CLEAR <content [facility] styleCode="Adilson Shantell d">Urine Medical Clarity Center </content>ANT[place]IET[place] R <content styleCode="Мария lics"> (CLEAR )</content> UNK NEGATIVE <content Saint styleCode="Adilson Shantell d">Urine Medical Bilirubin Center </content>NEGA TIVE <content styleCode="Мария lics"> (NEGATIVE )</content> Glucose NEGATIVE <content [facility] [Mass/volume] styleCode="Adilson Shantell in Urine by d">Urine Medical Test strip Glucose Center </content>NEGA TIVE MG/DL<content styleCode="Мария lics"> (NEGATIVE MG/DL)</conten t> pH of Urine by 4.5-8.0 <content [facility] Test strip styleCode="Adilson Shantell d">Urine pH Medical </content>7.0 Center NM<content styleCode="Мария lics"> (4.5-8.0 NM)</content> Specific 1.015-1.02 <content [facility] gravity of 5 styleCode="Adilson Shantell Urine by Test d">Urine Medical strip Specific Center [place] </content>1.02 0 NM<content styleCode="Мария lics"> (1.015-1.025 NM)</content> Hemoglobin NEGATIVE <content [facility] [Presence] in styleCode="Adilson Shantell Urine by Test d">Urine Blood Medical strip </content>TRAC Center E-INTACT <content styleCode="Мария lics"> (NEGATIVE )</content> Ketones NEGATIVE <content [facility] [Mass/volume] styleCode="Adilson Shantell in Urine by d">Urine Medical Test strip [facility] </content>NEGA TIVE MG/DL<content styleCode="Мария lics"> (NEGATIVE MG/DL)</conten t> Protein NEGATIVE <content [facility] [Mass/volume] styleCode="Adilson Stinson in Urine by d">Urine Medical Test strip Protein Center </content>NEGA TIVE MG/DL<content styleCode="Мария lics"> (NEGATIVE MG/DL)</conten t> Nitrite NEGATIVE <content [facility] [Presence] in styleCode="Adilson Dorantess Urine by Test d">Urine Medical strip Nitrite Center </content>NEGA TIVE <content styleCode="Мария lics"> (NEGATIVE )</content> Urobilinogen 0.2-1.0 <content [facility] [Units/volume] styleCode="Adilson Dorantess in Urine by d">Urine Medical Test strip Urobilinogen Center </content>0.2 MG/DL<content styleCode="Мария lics"> (0.2-1.0 MG/DL)</conten t> UNK 0-3 <content [facility] styleCode="Adilson Shantell d">Urine Red Medical Blood Cell Center </content>3-5 HPF<content styleCode="Мария lics"> (0-3 HPF)</content> Leukocyte NEGATIVE <content [facility] esterase styleCode="Adilson Dorantess [Presence] in d">Urine Medical Urine by Test Leukocyte Center strip </content>MODE RATE <content styleCode="Мария lics"> (NEGATIVE )</content> UNK 0-3 <content Saint styleCode="Adilson Shantell d">Urine White Medical Blood Cell Center </content>20 - 50 HPF<content styleCode="Мария lics"> (0-3 HPF)</content> UNK <content [facility] styleCode="Adilson Shantell d">Epithelial Medical Cell Center </content>2-5 LPF (Reference Range: not available)<br/ > UNK NEGATIVE <content [facility] styleCode="Adilson Shantell d">Urine Medical Bacteria Center </content>FEW HPF<content styleCode="Мария lics"> (NEGATIVE HPF)</content> ID Date Data Source Liver 12/05/2018 10:00:00 AM EST [facility] Profile.[id number] Name Value Range Interpretation Description Data Sup porting Code Source(s) Document(s ) Aspartate 14-36 <content [facility] aminotransferase styleCode="Bold"> Lucian hs [Enzymatic Aspartate Medical activity/volume] Aminotransferase Center in Serum or Plasma (AST) </content>22 IU/L<content styleCode="Italic s"> (14-36 IU/L)</content> Alanine 7-30 <content [facility] aminotransferase styleCode="Bold"> Lucian hs [Enzymatic Alanine Medical activity/volume] Aminotransferase Center in Serum or Plasma (ALT) </content>24 IU/L<content styleCode="Italic s"> (7-30 IU/L)</content> Alkaline 38-126 <content [facility] phosphatase styleCode="Bold"> Shantell [Enzymatic Alkaline Medical activity/volume] Phosphatase (ALP) Cente r in Serum or Plasma </content>121 IU/L<content styleCode="Italic s"> (38-126 IU/L)</content> Bilirubin.total 0.2-1.3 <content [facility] [Mass/volume] in styleCode="Bold"> Lucian hs Serum or Plasma Bilirubin Total Medical </content>0.4 Center MG/DL<content styleCode="Italic s"> (0.2-1.3 MG/DL)</content> Albumin 3.5-5.0 <content [facility] [Mass/volume] in styleCode="Bold"> Lucian hs Serum or Plasma Albumin Medical </content>4.6 Center G/DL<content styleCode="Italic s"> (3.5-5.0 G/DL)</content> ID Date Data Source LIPID.[id number] 12/05/2018 10:00:00 AM EST [facility] Name Value Range Interpretation Description Data Sup porting Code Source(s) Document(s ) UNK > 60 <content [facility] styleCode="Adilson Shantell d">HDL- Medical Cholesterol Center </content>96 MG/DL<content styleCode="Мария lics"> (> 60 MG/DL)</conten t> UNK < 100 Above high normal <content [facility] styleCode="Adilson Shantell d">LDL-Cholest Medical jin Center </content>106 MG/DL H<content styleCode="Мария lics"> (< 100 MG/DL)</conten t> Cholesterol -<200 Above high normal <content [facility] [Mass/volume] in styleCode="Adilson Shantell Serum or Plasma d">Cholesterol Medical </content>216 Center MG/DL H<content styleCode="Мария lics"> (-<200 MG/DL)</conten t> Triglyceride < 150 <content [facility] [Mass/volume] in styleCode="Adilson Shantell Serum or Plasma d">Triglycerid [facility] </content>72 MG/DL<content styleCode="Мария lics"> (< 150 MG/DL)</conten t> ID Date Data Source Hormones.[id number] 12/05/2018 10:00:00 AM EST [facility] Name Value Range Interpretation Description Data Sup porting Code Source(s) Document(s ) UNK 5.53-11. <content [facility] 0 styleCode="Adilson Shantell d">Thyroxine Medical (T4) Center </content>8.09 UG/DL<content styleCode="Мария lics"> (5.53-11.0 UG/DL)</conten t> Thyrotropin 0.465-4. <content [facility] [Units/volume] 68 styleCode="Adilson Shantell in Serum or d">Thyroid Medical Plasma by Stimulating Center Detection Hormone limit <= 0.05 </content>2.00 mIU/L MIU/L<content styleCode="Мария lics"> (0.465-4.68 MIU/L)</conten t> ID Date Data Source HematologyRou.[id number] 12/05/2018 10:00:00 AM EST [facility] 0500 Name Value Range Interpretation Description Data Sup porting Code Source(s) Document(s ) Leukocytes 4.4-11.0 <content Saint [#/volume] in styleCode="[facility] Blood by ">White Blood Medical Automated count Cell Count Center </content>4.82 KCUMM<content styleCode="Ital ics"> (4.4-11.0 KCUMM)</content > Erythrocytes 4.0-5.1 <content [facility] [#/volume] in styleCode="Bold Shantell Blood by ">Red Blood Medical Automated count Cell Count Center </content>4.42 MCUMM<content styleCode="Ital ics"> (4.0-5.1 MCUMM)</content > Hematocrit 36.0-46. <content [facility] [Volume 0 styleCode="Bold Shantell Fraction] of ">Hematocrit Medical Blood by </content>40.1 Center Automated count %<content styleCode="Ital ics"> (36.0-46.0 %)</content> Erythrocyte mean 80.0-100 <content [facility] corpuscular .0 styleCode="Bold Shantell volume [Entitic ">Mean Medical volume] by Corpuscular Center Automated count Volume </content>90.7 FL<content styleCode="Ital ics"> (80.0-100.0 FL)</content> Hemoglobin 12.3-16. <content [facility] [Mass/volume] in 0 styleCode="Bold Shantell Blood ">Hemoglobin Medical </content>13.3 Center G/DL<content styleCode="Ital ics"> (12.3-16.0 G/DL)</content> Erythrocyte 11.5-14. <content [facility] distribution 5 styleCode="Bold Shantell width [Ratio] by ">Red Cell Medical Automated count Distribution Center Width </content>13.2 %<content styleCode="Ital ics"> (11.5-14.5 %)</content> Erythrocyte mean 26.0-34. <content [facility] corpuscular 0 styleCode="Bold Shantell hemoglobin ">Mean Medical [Entitic mass] Corposcular Center by Automated Hemoglobin count </content>30.1 PG<content styleCode="Ital ics"> (26.0-34.0 PG)</content> Erythrocyte mean 32.0-37. <content [facility] corpuscular 0 styleCode="Bold Shantell hemoglobin ">Mean Corpus. Medical concentration Hgb Center [Mass/volume] by Concentration Automated count (MCHC) </content>33.2 G/DL<content styleCode="Ital ics"> (32.0-37.0 G/DL)</content> Platelets 130-400 <content [facility] [#/volume] in styleCode="Bold Shantell Blood by ">Platelet Medical Automated count Count Center </content>352 KCUMM<content styleCode="Ital ics"> (130-400 KCUMM)</content > Platelet mean 8.0-11.0 <content [facility] volume [Entitic styleCode="Bold Shantell volume] in Blood ">Mean Platelet Medical by Automated Volume Center count </content>10.0 FL<content styleCode="Ital ics"> (8.0-11.0 FL)</content> UNK 1.6-7.3 <content [facility] styleCode="Bold Shantell ">Neutrophil Medical Count Center </content>1.73 KCUMM<content styleCode="Ital ics"> (1.6-7.3 KCUMM)</content > Neutrophils 36-66 Below low normal <content Saint [#/volume] in styleCode="Bold Shantell Blood by ">Neutrophil Medical Automated count </content>35.9 Center % L<content styleCode="Ital ics"> (36-66 %)</content> Lymphocytes 24.0-44. Above high <content [facility] [#/volume] in 0 normal styleCode="Bold Shantell Blood by ">Lymphocyte Medical Automated count </content>49.0 Center % H<content styleCode="Ital ics"> (24.0-44.0 %)</content> Monocytes 3.0-10.0 Above high <content [facility] [#/volume] in normal styleCode="Bold Shantell Blood by ">Monocyte Medical Automated count </content>12.0 Center % H<content styleCode="Ital ics"> (3.0-10.0 %)</content> UNK 1.0-4.8 <content [facility] styleCode="Bold Shantell ">Lymphocyte Medical Count Center </content>2.36 KCUMM<content styleCode="Ital ics"> (1.0-4.8 KCUMM)</content > Eosinophils 0-5.0 <content Saint [#/volume] in styleCode="Bold Shantell Blood by ">Eosinophil Medical Automated count </content>2.1 Center %<content styleCode="Ital ics"> (0-5.0 %)</content> UNK 0.2-0.9 <content Saint styleCode="Bold Shantell ">Monocyte Medical Count Center </content>0.58 KCUMM<content styleCode="Ital ics"> (0.2-0.9 KCUMM)</content > UNK 0.0-0.6 <content [facility] styleCode="Bold Shantell ">Eosinophil Medical Count Center </content>0.10 KCUMM<content styleCode="Ital ics"> (0.0-0.6 KCUMM)</content > UNK 0.0 <content Saint styleCode="Bold Shantell ">Nucleated Red Medical Blood Cell Center Count </content>0.00 KCUMM<content styleCode="Ital ics"> (0.0 KCUMM)</content > Basophils 0.0-1.0 <content Saint [#/volume] in styleCode="Bold Shantell Blood by ">Basophil Medical Automated count </content>1.0 Center %<content styleCode="Ital ics"> (0.0-1.0 %)</content> UNK 0 <content Saint styleCode="Bold Shantell ">Nucleated Red Medical Blood Cell Center </content>0.0 /100<content styleCode="Ital ics"> (0 /100)</content> UNK 0.0-0.3 <content Saint styleCode="Bold Shantell ">Basophil Medical Count Center </content>0.05 KCUMM<content styleCode="Ital ics"> (0.0-0.3 KCUMM)</content > UNK < 1 <content Saint styleCode="Bold Shantell ">Immature Medical Granulocyte Center Ratio </content>0.0 %<content styleCode="Ital ics"> (< 1 %)</content> UNK 0-0.1 <content Saint styleCode="Bold Shantell ">Immature Medical Granulocyte Center Count </content>0.00 KCUMM<content styleCode="Ital ics"> (0-0.1 KCUMM)</content > ID Date Data Source GFR(Creatinine).[id number] 12/05/2018 10:00:00 AM [facility] 0-0500 Name Value Range Interpretation Code Description Data Linda rce(s) Supporting Document(s ) UNK > 60 <content [facility] styleCode="Bold"> Medical Cent er EGFR </content>108 GFR<content styleCode="Italic s"> (> 60 GFR)</content> ID Date Data Source CHMROUTINECCDA.[id number] 12/05/2018 10:00:00 AM [facility] -0500 Name Value Range Interpretation Description Data Sup porting Code Source(s) Document(s ) Carcinoembryonic Ag 0.0-2.5 <content [facility] [Mass/volume] in styleCode="Thomas Shantell Serum or Plasma ld">[facility] Antigen </content><0. 5 ng/mL<content styleCode="It alics"> (0.0-2.5 ng/mL)</max nt> UNK 2.3-3.5 <content [facility] styleCode="Thomas Shantell ld">Globulin Medical </content>3.0 Center G/DL<content styleCode="It alics"> (2.3-3.5 G/DL)</conten t> UNK >= 1.0 <content Saint styleCode="Thomas Shantell ld">AG Ratio Medical </content>1.5 Center NM<content styleCode="It alics"> (>= 1.0 NM)</content> UNK 30-110 <content [facility] styleCode="Thomas Shantell ld">Amylase Medical </content>57 Center IU/L<content styleCode="It alics"> (30-110 IU/L)</conten t> UNK 4.2-5.8 Above high <content Saint normal styleCode="Thomas Shantell ld">Hemoglobi Medical n A1C Center </content>6.0 % H<content styleCode="It alics"> (4.2-5.8 %)</content> Urate [Mass/volume] 3.8-8.5 Below low normal <content Rayray nt in Serum or Plasma styleCode="Thomas Stinson ld">Uric Acid Medical </content>3.6 Center MG/DL L<content styleCode="It alics"> (3.8-8.5 MG/DL)</max nt> Protein 6.3-8.2 <content [facility] [Mass/volume] in styleCode="Thomas Stinson Serum or Plasma ld">Total Medical Protein Center </content>7.6 G/DL<content styleCode="It alics"> (6.3-8.2 G/DL)</conten t> ID Date Data Source [facility].[id number] 12/05/2018 10:00:00 AM EST [facility] Name Value Range Interpretation Description Data Sup porting Code Source(s) Document(s ) Sodium 137-145 <content [facility] [Moles/volume] in styleCode="Bold"> [facility] Serum or Plasma Sodium Medical </content>141 Center MEQ/L<content styleCode="Italic s"> (137-145 MEQ/L)</content> Chloride 98-107 Above high <content Saint [Moles/volume] in normal styleCode="Bold"> [facility] Serum or Plasma Chloride Medical </content>108 Center MEQ/L H<content styleCode="Italic s"> (98-107 MEQ/L)</content> Potassium 3.5-5.3 <content Saint [Moles/volume] in styleCode="Bold"> [facility] Serum or Plasma Potassium Medical </content>4.2 Center MEQ/L<content styleCode="Italic s"> (3.5-5.3 MEQ/L)</content> Creatinine 0.5-1.3 <content [facility] [Mass/volume] in styleCode="Bold"> [facility] Serum or Plasma Creatinine Medical </content>0.6 Center MG/DL<content styleCode="Italic s"> (0.5-1.3 MG/DL)</content> Carbon dioxide, 22-30 <content [facility] total styleCode="Bold"> Shantell [Moles/volume] in Carbon Dioxide Medical Serum or Plasma </content>25 Center MEQ/L<content styleCode="Italic s"> (22-30 MEQ/L)</content> UNK 7-17 <content [facility] styleCode="Bold"> [facility] BUN </content>9 Medical MG/DL<content Center styleCode="Italic s"> (7-17 MG/DL)</content> UNK > 60 <content Saint styleCode="Bold"> [facility] EGFR Medical </content>108 Center GFR<content styleCode="Italic s"> (> 60 GFR)</content> Glucose 74-106 <content [facility] [Mass/volume] in styleCode="Bold"> Lucian hs Serum or Plasma Glucose Medical </content>105 Center MG/DL<content styleCode="Italic s"> (74-106 MG/DL)</content> Aspartate 14-36 <content [facility] aminotransferase styleCode="Bold"> Lucian hs [Enzymatic Aspartate Medical activity/volume] Aminotransferase Center in Serum or Plasma (AST) </content>22 IU/L<content styleCode="Italic s"> (14-36 IU/L)</content> Calcium 8.4-10. <content [facility] [Mass/volume] in 2 styleCode="Bold"> Lucian hs Serum or Plasma Calcium Medical </content>10.2 Center MG/DL<content styleCode="Italic s"> (8.4-10.2 MG/DL)</content> Alanine 7-30 <content [facility] aminotransferase styleCode="Bold"> Lucian hs [Enzymatic Alanine Medical activity/volume] Aminotransferase Center in Serum or Plasma (ALT) </content>24 IU/L<content styleCode="Italic s"> (7-30 IU/L)</content> Bilirubin.total 0.2-1.3 <content [facility] [Mass/volume] in styleCode="Bold"> Lucian hs Serum or Plasma Bilirubin Total Medical </content>0.4 Center MG/DL<content styleCode="Italic s"> (0.2-1.3 MG/DL)</content> Albumin 3.5-5.0 <content [facility] [Mass/volume] in styleCode="Bold"> Lucian hs Serum or Plasma Albumin Medical </content>4.6 Center G/DL<content styleCode="Italic s"> (3.5-5.0 G/DL)</content> Alkaline 38-126 <content [facility] phosphatase styleCode="Bold"> Shant[facility] [Enzymatic Alkaline Medical activity/volume] Phosphatase (ALP) Cente r in Serum or Plasma </content>121 IU/L<content styleCode="Italic s"> (38-126 IU/L)</content> ID Date Data Source Urinalysis 12/05/2018 10:00:00 AM EST [facility] Name Value Range Interpretation Description Data Sup porting Code Source(s) Document(s ) Color of Urine YELLOW <content Saint styleCode="[facility] d">Color, Medical Urine Center </content>YELL OW <content styleCode="Мария lics"> (YELLOW )</content> UNK CLEAR <content Saint styleCode="Adilson Dorantess d">Urine Medical Clarity Center </content>ANTONIET[place] R <content styleCode="Мария lics"> (CLEAR )</content> Ketones NEGATIVE <content Saint [Mass/volume] styleCode="Adilson Stinson in Urine by d">Urine Medical Test strip [facility] </content>NEGA TIVE MG/DL<content styleCode="Мария lics"> (NEGATIVE MG/DL)</conten t> UNK NEGATIVE <content Saint styleCode="Adilson Shantell d">Urine Medical Bilirubin Center </content>NEGA TIVE <content styleCode="Мария lics"> (NEGATIVE )</content> Specific 1.015-1.02 <content Saint gravity of 5 styleCode="Adilson Dorantess Urine by Test d">Urine Medical strip Specific Center [place] </content>1.02 0 NM<content styleCode="Мария lics"> (1.015-1.025 NM)</content> Hemoglobin NEGATIVE <content [facility] [Presence] in styleCode="Adilson Dorantess Urine by Test d">Urine Blood Medical strip </content>TRAC Center E-INTACT <content styleCode="Мария lics"> (NEGATIVE )</content> Glucose NEGATIVE <content Saint [Mass/volume] styleCode="Adilson Shantell in Urine by d">Urine Medical Test strip Glucose Center </content>NEGA TIVE MG/DL<content styleCode="Мария lics"> (NEGATIVE MG/DL)</conten t> Leukocyte NEGATIVE <content [facility] esterase styleCode="Adilson Dorantess [Presence] in d">Urine Medical Urine by Test Leukocyte Center strip </content>MODE RATE <content styleCode="Мария lics"> (NEGATIVE )</content> Nitrite NEGATIVE <content Saint [Presence] in styleCode="Adilson Dorantess Urine by Test d">Urine Medical strip Nitrite Center </content>NEGA TIVE <content styleCode="Мария lics"> (NEGATIVE )</content> pH of Urine by 4.5-8.0 <content [facility] Test strip styleCode="Adilson Shantell d">Urine pH Medical </content>7.0 Center NM<content styleCode="Мария lics"> (4.5-8.0 NM)</content> Urobilinogen 0.2-1.0 <content [facility] [Units/volume] styleCode="Adilson Shantell in Urine by d">Urine Medical Test strip Urobilinogen Center </content>0.2 MG/DL<content styleCode="Мария lics"> (0.2-1.0 MG/DL)</conten t> Protein NEGATIVE <content [facility] [Mass/volume] styleCode="Adilson Shantell in Urine by d">Urine Medical Test strip Protein Center </content>NEGA TIVE MG/DL<content styleCode="Мария lics"> (NEGATIVE MG/DL)</conten t> UNK <content [facility] styleCode="Adilson Shantell d">Epithelial Medical Cell Center </content>2-5 LPF (Reference Range: not available)<br/ > UNK 0-3 <content Saint styleCode="Adilson Shantell d">Urine Red Medical Blood Cell Center </content>3-5 HPF<content styleCode="Мария lics"> (0-3 HPF)</content> UNK 0-3 <content Saint styleCode="Adilson Dorantess d">Urine White Medical Blood Cell Center </content>20 - 50 HPF<content styleCode="Мария lics"> (0-3 HPF)</content> UNK NEGATIVE <content Saint styleCode="Adilson Dorantess d">Urine Medical Bacteria Center </content>FEW HPF<content styleCode="Мария lics"> (NEGATIVE HPF)</content> ID Date Data Source Liver Profile 12/05/2018 10:00:00 AM EST [facility] Name Value Range Interpretation Description Data Sup porting Code Source(s) Document(s ) Aspartate 14-36 <content [facility] aminotransferase styleCode="Bold"> Lucian hs [Enzymatic Aspartate Medical activity/volume] Aminotransferase Center in Serum or Plasma (AST) </content>22 IU/L<content styleCode="Italic s"> (14-36 IU/L)</content> Alanine 7-30 <content [facility] aminotransferase styleCode="Bold"> Lucian hs [Enzymatic Alanine Medical activity/volume] Aminotransferase Center in Serum or Plasma (ALT) </content>24 IU/L<content styleCode="Italic s"> (7-30 IU/L)</content> Alkaline 38-126 <content [facility] phosphatase styleCode="Bold"> Sh[facility] [Enzymatic Alkaline Medical activity/volume] Phosphatase (ALP) Cente r in Serum or Plasma </content>121 IU/L<content styleCode="Italic s"> (38-126 IU/L)</content> Bilirubin.total 0.2-1.3 <content [facility] [Mass/volume] in styleCode="Bold"> Lucian hs Serum or Plasma Bilirubin Total Medical </content>0.4 Center MG/DL<content styleCode="Italic s"> (0.2-1.3 MG/DL)</content> Albumin 3.5-5.0 <content [facility] [Mass/volume] in styleCode="Bold"> Lucian hs Serum or Plasma Albumin Medical </content>4.6 Center G/DL<content styleCode="Italic s"> (3.5-5.0 G/DL)</content> ID Date Data Source LIPID 12/05/2018 10:00:00 AM [facility] Name Value Range Interpretation Description Data Sup porting Code Source(s) Document(s ) Cholesterol -<200 Above high normal <content [facility] [Mass/volume] in styleCode="Adilson Shantell Serum or Plasma d">Cholesterol Medical </content>216 Center MG/DL H<content styleCode="Мария lics"> (-<200 MG/DL)</conten t> UNK < 100 Above high normal <content Saint styleCode="Adilson Shantell d">[facility] </content>106 MG/DL H<content styleCode="Мария lics"> (< 100 MG/DL)</conten t> Triglyceride < 150 <content [facility] [Mass/volume] in styleCode="Adilson Shantell Serum or Plasma d">Triglycerid [facility] Center </content>72 MG/DL<content styleCode="Мария lics"> (< 150 MG/DL)</conten t> UNK > 60 <content [facility] styleCode="Adilson Shantell d">HDL- Medical Cholesterol Center </content>96 MG/DL<content styleCode="Мария lics"> (> 60 MG/DL)</conten t> ID Date Data Source Hormones 12/05/2018 10:00:00 AM [facility] Name Value Range Interpretation Description Data Sup porting Code Source(s) Document(s ) Thyrotropin 0.465-4. <content [facility] [Units/volume] 68 styleCode="Adilson Shantell in Serum or d">Thyroid Medical Plasma by Stimulating Center Detection Hormone limit <= 0.05 </content>2.00 mIU/L MIU/L<content styleCode="Мария lics"> (0.465-4.68 MIU/L)</conten t> UNK 5.53-11. <content [facility] 0 styleCode="Adilson Shantell d">Thyroxine Medical (T4) Center </content>8.09 UG/DL<content styleCode="Мария lics"> (5.53-11.0 UG/DL)</conten t> ID Date Data Source HematologyRou 12/05/2018 10:00:00 AM EST [facility] Name Value Range Interpretation Description Data Sup porting Code Source(s) Document(s ) Leukocytes 4.4-11.0 <content [facility] [#/volume] in styleCode="Bold Shantell Blood by ">White Blood Medical Automated count Cell Count Center </content>4.82 KCUMM<content styleCode="Ital ics"> (4.4-11.0 KCUMM)</content > Erythrocytes 4.0-5.1 <content [facility] [#/volume] in styleCode="Bold Shantell Blood by ">Red Blood Medical Automated count Cell Count Center </content>4.42 MCUMM<content styleCode="Ital ics"> (4.0-5.1 MCUMM)</content > Hematocrit 36.0-46. <content [facility] [Volume 0 styleCode="Bold Shantell Fraction] of ">Hematocrit Medical Blood by </content>40.1 Center Automated count %<content styleCode="Ital ics"> (36.0-46.0 %)</content> Hemoglobin 12.3-16. <content [facility] [Mass/volume] in 0 styleCode="Bold Shantell Blood ">Hemoglobin Medical </content>13.3 Center G/DL<content styleCode="Ital ics"> (12.3-16.0 G/DL)</content> Erythrocyte mean 80.0-100 <content [facility] corpuscular .0 styleCode="Bold Shantell volume [Entitic ">Mean Medical volume] by Corpuscular Center Automated count Volume </content>90.7 FL<content styleCode="Ital ics"> (80.0-100.0 FL)</content> Erythrocyte mean 26.0-34. <content [facility] corpuscular 0 styleCode="Bold Shantell hemoglobin ">Mean Medical [Entitic mass] Corposcular Center by Automated Hemoglobin count </content>30.1 PG<content styleCode="Ital ics"> (26.0-34.0 PG)</content> Erythrocyte 11.5-14. <content [facility] distribution 5 styleCode="Bold Shantell width [Ratio] by ">Red Cell Medical Automated count Distribution Center Width </content>13.2 %<content styleCode="Ital ics"> (11.5-14.5 %)</content> Erythrocyte mean 32.0-37. <content [facility] corpuscular 0 styleCode="Bold Shantell hemoglobin ">Mean Corpus. Medical concentration Hgb Center [Mass/volume] by Concentration Automated count (MCHC) </content>33.2 G/DL<content styleCode="Ital ics"> (32.0-37.0 G/DL)</content> Platelet mean 8.0-11.0 <content [facility] volume [Entitic styleCode="Bold Shantell volume] in Blood ">Mean Platelet Medical by Automated Volume Center count </content>10.0 FL<content styleCode="Ital ics"> (8.0-11.0 FL)</content> UNK 1.6-7.3 <content [facility] styleCode="Bold Shantell ">Neutrophil Medical Count Center </content>1.73 KCUMM<content styleCode="Ital ics"> (1.6-7.3 KCUMM)</content > Platelets 130-400 <content [facility] [#/volume] in styleCode="Bold Shantell Blood by ">Platelet Medical Automated count Count Center </content>352 KCUMM<content styleCode="Ital ics"> (130-400 KCUMM)</content > Lymphocytes 24.0-44. Above high <content [facility] [#/volume] in 0 normal styleCode="Bold Shantell Blood by ">Lymphocyte Medical Automated count </content>49.0 Center % H<content styleCode="Ital ics"> (24.0-44.0 %)</content> Neutrophils 36-66 Below low normal <content [facility] [#/volume] in styleCode="Bold Shantell Blood by ">Neutrophil Medical Automated count </content>35.9 Center % L<content styleCode="Ital ics"> (36-66 %)</content> Monocytes 3.0-10.0 Above high <content [facility] [#/volume] in normal styleCode="Bold Shantell Blood by ">Monocyte Medical Automated count </content>12.0 Center % H<content styleCode="Ital ics"> (3.0-10.0 %)</content> UNK 1.0-4.8 <content [facility] styleCode="Bold Shantell ">Lymphocyte Medical Count Center </content>2.36 KCUMM<content styleCode="Ital ics"> (1.0-4.8 KCUMM)</content > Eosinophils 0-5.0 <content [facility] [#/volume] in styleCode="Bold Shantell Blood by ">Eosinophil Medical Automated count </content>2.1 Center %<content styleCode="Ital ics"> (0-5.0 %)</content> UNK 0.2-0.9 <content [facility] styleCode="[facility] ">Monocyte Medical Count Center </content>0.58 KCUMM<content styleCode="Ital ics"> (0.2-0.9 KCUMM)</content > UNK 0 <content [facility] styleCode="[facility] ">Nucleated Red Medical Blood Cell Center </content>0.0 /100<content styleCode="Ital ics"> (0 /100)</content> Basophils 0.0-1.0 <content [facility] [#/volume] in styleCode="[facility] Blood by ">Basophil Medical Automated count </content>1.0 Center %<content styleCode="Ital ics"> (0.0-1.0 %)</content> UNK 0.0-0.6 <content [facility] styleCode="[facility] ">Eosinophil Medical Count Center </content>0.10 KCUMM<content styleCode="Ital ics"> (0.0-0.6 KCUMM)</content > UNK 0.0-0.3 <content [facility] styleCode="[facility] ">Basophil Medical Count Center </content>0.05 KCUMM<content styleCode="Ital ics"> (0.0-0.3 KCUMM)</content > UNK 0-0.1 <content [facility] styleCode="[facility] ">Immature Medical Granulocyte Center Count </content>0.00 KCUMM<content styleCode="Ital ics"> (0-0.1 KCUMM)</content > UNK < 1 <content [facility] styleCode="Bold [facility] ">Immature Medical Granulocyte Center Ratio </content>0.0 %<content styleCode="Ital ics"> (< 1 %)</content> UNK 0.0 <content [facility] styleCode="Bold [facility] ">Nucleated Red Medical Blood Cell Center Count </content>0.00 KCUMM<content styleCode="Ital ics"> (0.0 KCUMM)</content > ID Date Data Source GFR(Creatinine) 12/05/2018 10:00:00 AM [facility] Name Value Range Interpretation Code Description Data Linda rce(s) Supporting Document(s ) UNK > 60 <content [facility] styleCode="Bold"> Medical Cent er EGFR </content>108 GFR<content styleCode="Italic s"> (> 60 GFR)</content> ID Date Data Source [id number] 12/05/2018 10:00:00 AM [facility] Name Value Range Interpretation Description Data Sup porting Code Source(s) Document(s ) UNK 2.3-3.5 <content [facility] styleCode="Bold Medical ">Globulin Center </content>3.0 G/DL<content styleCode="Ital ics"> (2.3-3.5 G/DL)</content> Protein 6.3-8.2 <content [facility] [Mass/volum styleCode="Bold Medical e] in Serum ">Total Protein Center or Plasma </content>7.6 G/DL<content styleCode="Ital ics"> (6.3-8.2 G/DL)</content> UNK >= 1.0 <content [facility] styleCode="[facility] ">AG Ratio Center </content>1.5 NM<content styleCode="Ital ics"> (>= 1.0 NM)</content> UNK 30-110 <content [facility] styleCode="[facility] ">Amylase Center </content>57 IU/L<content styleCode="Ital ics"> (30-110 IU/L)</content> Urate 3.8-8.5 Below low normal <content [facility] [Mass/volum styleCode="Bold Medical e] in Serum ">Uric Acid Center or Plasma </content>3.6 MG/DL L<content styleCode="Ital ics"> (3.8-8.5 MG/DL)</content > ID Date Data Source BMP 12/05/2018 10:00:00 AM EST [facility] Name Value Range Interpretation Description Data Sup porting Code Source(s) Document(s ) Sodium 137-145 <content [facility] [Moles/volume] in styleCode="Bold"> [facility] Serum or Plasma Sodium Medical </content>141 Center MEQ/L<content styleCode="Italic s"> (137-145 MEQ/L)</content> Chloride 98-107 Above high <content [facility] [Moles/volume] in normal styleCode="Bold"> [facility] Serum or Plasma Chloride Medical </content>108 Center MEQ/L H<content styleCode="Italic s"> (98-107 MEQ/L)</content> Potassium 3.5-5.3 <content [facility] [Moles/volume] in styleCode="Bold"> [facility] Serum or Plasma Potassium Medical </content>4.2 Center MEQ/L<content styleCode="Italic s"> (3.5-5.3 MEQ/L)</content> Glucose 74-106 <content [facility] [Mass/volume] in styleCode="Bold"> [facility] Serum or Plasma Glucose Medical </content>105 Center MG/DL<content styleCode="Italic s"> (74-106 MG/DL)</content> Carbon dioxide, 22-30 <content [facility] total styleCode="Bold"> [facility] [Moles/volume] in Carbon Dioxide Medical Serum or Plasma </content>25 Center MEQ/L<content styleCode="Italic s"> (22-30 MEQ/L)</content> Calcium 8.4-10. <content [facility] [Mass/volume] in 2 styleCode="Bold"> [facility] Serum or Plasma Calcium Medical </content>10.2 Center MG/DL<content styleCode="Italic s"> (8.4-10.2 MG/DL)</content> UNK > 60 <content [facility] styleCode="[facility]old"> [facility] EGFR Medical </content>108 Center GFR<content styleCode="Italic s"> (> 60 GFR)</content> UNK 7-17 <content [facility] styleCode="[facility]"> [facility] BUN </content>9 Medical MG/DL<content Center styleCode="Italic s"> (7-17 MG/DL)</content> Creatinine 0.5-1.3 <content [facility] [Mass/volume] in styleCode="Bold"> [facility] Serum or Plasma Creatinine Medical </content>0.6 Center MG/DL<content styleCode="Italic s"> (0.5-1.3 MG/DL)</content> Bilirubin.total 0.2-1.3 <content [facility] [Mass/volume] in styleCode="Bold"> [facility] Serum or Plasma Bilirubin Total Medical </content>0.4 Center MG/DL<content styleCode="Italic s"> (0.2-1.3 MG/DL)</content> Albumin 3.5-5.0 <content [facility] [Mass/volume] in styleCode="Bold"> [facility] Serum or Plasma Albumin Medical </content>4.6 Center G/DL<content styleCode="Italic s"> (3.5-5.0 G/DL)</content> Aspartate 14-36 <content [facility] aminotransferase styleCode="Bold"> [facility] [Enzymatic Aspartate Medical activity/volume] Aminotransferase Center in Serum or Plasma (AST) </content>22 IU/L<content styleCode="Italic s"> (14-36 IU/L)</content> Alkaline 38-126 <content [facility] phosphatase styleCode="Bold"> [facility] [Enzymatic Alkaline Medical activity/volume] Phosphatase (ALP) Cente r in Serum or Plasma </content>121 IU/L<content styleCode="Italic s"> (38-126 IU/L)</content> Alanine 7-30 <content [facility] aminotransferase styleCode="Bold"> [facility] [Enzymatic Alanine Medical activity/volume] Aminotransferase Center in Serum or Plasma (ALT) </content>24 IU/L<content styleCode="Italic s"> (7-30 IU/L)</content> Procedure Social History Code Duration Value Status Description Data Source(s ) Smoking 06/12/2020 Denies Ever completed Denies Ever Smoked [facility] 12:00:00 PM EDT Smoked Medical C enter Smoking 06/12/2020 Denies Ever completed Denies Ever Smoked [facility] 11:23:00 AM EDT Smoked Medical C enter Smoking 06/12/2020 Denies Ever completed Denies Ever Smoked [facility] 11:22:00 AM EDT Smoked Medical C enter Smoking 04/12/2020 Denies Ever completed Denies Ever Smoked [facility] 05:48:00 PM EDT Smoked Medical C enter Smoking 04/12/2020 Denies Ever completed Denies Ever Smoked [facility] 05:35:00 PM EDT Smoked Medical C enter Smoking 08/27/2019 Denies Ever completed Denies Ever Smoked [facility] 05:09:00 PM EDT Smoked Medical C enter Smoking 08/27/2019 Denies Ever completed Denies Ever Smoked [facility] 05:00:00 PM EDT Smoked Medical C enter Smoking 08/27/2019 Denies Ever completed Denies Ever Smoked [facility] 04:38:00 PM EDT Smoked Medical C enter Smoking Unknown if ever completed Unknown if ever Elizabet t [facility] smoked smoked Medical Center Vital Signs ID Date Data Source UNK Name Value Range Interpretation Code Description Data Source(s) Body temperature 36.801982 36.353062 [facility] Respiratory rate 18 /min 18 /min [facility] Oxygen saturation 100 % 100 % [facility] Arterial blood [facility] Center by Pulse oximetry Heart rate 64 /min 64 /min [facility] Diastolic blood 86 mm[Hg] 86 mm[Hg] [facility] pressure Medical Center Systolic blood 135 mm[Hg] 135 mm[Hg] [facility] pressure Medical Center Body weight 86.057679 kg 86.179640 kg [facility] Measured Medical [place] Body temperature 36.178217 36.076776 [facility] Respiratory rate 18 /min 18 /min [facility] Oxygen saturation 97 % 97 % [facility] Arterial blood Medical Center by Pulse oximetry Heart rate 89 /min 89 /min [facility] Body height 152.887690 152.444352 cm [facility] Diastolic blood 92 mm[Hg] 92 mm[Hg] [facility] Medical Center Systolic blood 169 mm[Hg] 169 mm[Hg] [facility] Center Body mass index 37.1 kg/m2 37.1 kg/m2 [facility] (BMI) [Ratio] Medical [facility] [address] Body temperature 36.340272 36.244537 [facility] Respiratory rate 17 /min 17 /min [facility] Oxygen saturation 99 % 99 % [facility] Arterial blood Medical Center by Pulse oximetry Heart rate 80 /min 80 /min [facility] Diastolic blood 78 mm[Hg] 78 mm[Hg] [facility] Systolic blood 136 mm[Hg] 136 mm[Hg] [facility] Body weight 74.180065 kg 74.602905 kg [facility] Medical [place] Body temperature 36.598586 36.257505 [facility] Respiratory rate 17 /min 17 /min [facility] Oxygen saturation 100 % 100 % [facility] blood [facility] Center by Pulse oximetry Heart rate 80 /min 80 /min [facility] Body height 154.093504 154.363120 cm [facility] Diastolic blood 93 mm[Hg] 93 mm[Hg] [facility] Medical Center Systolic blood 161 mm[Hg] 161 mm[Hg] [facility] Body mass index 31.1 kg/m2 31.1 kg/m2 [facility] (BMI) [Ratio] Medical [facility] [address] Body temperature 36.063258 36.888458 [facility] Respiratory rate 16 /min 16 /min [facility] Oxygen saturation 99 % 99 % [facility] Arterial blood [facility] Center by Pulse oximetry Heart rate 76 /min 76 /min [facility] Diastolic blood 76 mm[Hg] 76 mm[Hg] [facility] pressure Medical Center Systolic blood 134 mm[Hg] 134 mm[Hg] [facility] Body temperature 36.284342 36.790768 [facility] Respiratory rate 17 /min 17 /min [facility] Oxygen saturation 99 % 99 % [facility] osephs in Arterial blood [facility] by Pulse oximetry Heart rate 71 /min 71 /min [facility] Diastolic blood 64 mm[Hg] 64 mm[Hg] [facility] Systolic blood 121 mm[Hg] 121 mm[Hg] [facility] Body temperature 37.221874 37.954094 [facility] Respiratory rate 18 /min 18 /min [facility] Oxygen saturation 99 % 99 % [facility] osephs in Arterial blood [facility] by Pulse oximetry Heart rate 84 /min 84 /min [facility] Diastolic blood 74 mm[Hg] 74 mm[Hg] [facility] Systolic blood 148 mm[Hg] 148 mm[Hg] [facility] Patient Treatment Plan of Care Planned Activity Planned Date Details Description Data Source (s) losartan 25 mg Tablet [facility] loratadine 10 mg Tablet [facility] pantoprazole 40 MG Delayed S [facility] Oral Tablet [place] Ciprofloxacin 500 MG Oral [facility]
[2020-07-23 07:42] VITALS: BP 149/78; PULSE 71; TEMP 98.9; BMI 36.3
[2020-07-23] MEDS ORDERED: CEFTRIAXONE 1,000 MG in DEXTROSE 5%-WATER - 50 ML IVPB ONE (07:55)
[2020-07-23] MEDS ORDERED: VANCOMYCIN 1 GM in D5W (PRE-DOCKED) 1,000 MG/250 ML IVPB ONE (07:55)
[2020-07-23] MEDS ORDERED: DIPHTH,PERTUSS(ACELL),TET 0.5 ML DISP.SYRIN IM ONE ×2 (08:08→08:40)
--- NOTE | 2020-07-23 08:13 | PDOC ---
History of Present Illness - General Chief Complaint: Eye Problem Stated Complaint: RT EYE PAIN Time Seen by Provider: 07/23/20 07:32 History Source: Patient Exam Limitations: No Limitations - History of Present Illness Initial Comments: 07/23/20 08:06 64-year-old female history of gastritis, hypertension presents complaining of pain and swelling surrounded her left eye. Reports mechanical trip and fall 3 days ago, fell onto the left side of her body. Struck area surrounding left eye, denies head strike, LOC, nausea, vomiting, headache, changes in vision, back pain, chest pain, shortness of breath or any other injury. Awoke this morning with worsening swelling, redness and pain. Unknown tetanus status. Patient wears corrective lenses. ROS: as above PE: GENERAL: well-appearing, NAD HEAD: NCAT EYES: VA OS: 20/25 OD: 2/25 OU: 20/25, Pupils equal, round and reactive to light, EOMI, sclera anicteric, conjunctiva clear, periorbital swelling, erythema, warmth, superficial abrasions noted, no supraorbital or infraorbital bony tenderness to palpation ENT: Normal bilateral TMs, pharynx: no erythema, no exudate, uvula midline NECK: supple CHEST: nontender RESP: clear, no w/r/r CARDIO: rrr, no m/g/r ABD: +BS, soft, nontender, non distended BACK: no midline spinal ttp, no CVAT EXTREMITIES: Normal range of motion, no edema NEUROLOGICAL: Normal speech, normal gait SKIN: Warm, Dry Is this a multiple visit Asthma Patient?: No Past History - Medical History Allergies/Adverse Reactions: Allergies Allergy/AdvReac Type Severity Reaction Status Date / Time No Known Allergies Allergy Verified 07/23/20 07:29 Home Medications: Ambulatory Orders Amoxicillin/Potassium Clav [Augmentin 875-125 Tablet] 1 each PO BID 7 Days #14 tablet 07/23/20 Ibuprofen 400 mg PO Q6H #20 tablet 07/23/20 COPD: No HTN: Yes - Reproductive History Is Patient Now?: No - Immunization History Immunization Up to Date: No - Psycho-Social/Smoking History Smoking History: Never smoked Have you smoked in the past 12 months: No - Substance Abuse Hx (Audit-C & DAST Scrn) How often the patient has a drink containing alcohol: Never Score: In Men: 4 or > Positive; In Women: 3 or > Positive: 0 Screen Result (Pos requires Nsg. Audit-10AR): Negative In the last yr the pt used illegal drug/Rx for NonMed reason: No Score: Yes response is considered Positive: 0 Screen Result (Positive result requires Nsg. DAST-10): Negative *Physical Exam - Vital Signs Last Vital Signs Temp Pulse Resp BP Pulse Ox 98.9 F 71 16 149/78 99 07/23/20 07:26 07/23/20 07:26 07/23/20 07:26 07/23/20 07:26 07/23/20 07:26 ED Treatment Course - RADIOLOGY Radiology Studies Ordered: Category Date Time Status FACIAL BONES CT W/O CONTRAST [CT] Stat CT Scan 07/23/20 07:44 Ordered Medical Decision Making - Medical Decision Making 07/23/20 08:13 64-year-old female history of gastritis, hypertension presents complaining of pain and swelling surrounded her left eye. Reports mechanical trip and fall 3 days ago, fell onto the left side of her body. Struck area surrounding left eye, denies head strike, LOC, nausea, vomiting, headache, changes in vision, back pain, chest pain, shortness of breath or any other injury. Awoke this morning with worsening swelling, redness and pain. Unknown tetanus status. Patient wears corrective lenses. 07/23/20 10:21 IV vanc and ceftriaxone facial bones CT no acute fracture Prescription for Augmentin Advised patient to take ibuprofen 400 mg 1 tablet every 6 hours as needed for pain and swelling reviewed labs, drawn this am prior to ED visit wbc - 4.5 Cr - 0.6 Stable for discharge 07/23/20 10:24 Discharge - Discharge Information Problems reviewed: Yes Clinical Impression/Diagnosis: Orbital cellulitis on left Condition: Stable Disposition: HOME - Admission No - Follow up/Referral - Patient Discharge Instructions Additional Instructions: Take Augmentin and ibuprofen as directed Return to ED if worsening pain, swelling, fever, changes in vision or any concerning symptoms - Post Discharge Activity
[2020-07-23] MEDS ORDERED: VANCOMYCIN 1 GRAM (PRE-DOCKED) 1,000 MG/250 ML BAG IVPB ONE (08:40)
[2020-07-23] MEDS ORDERED: CEFTRIAXONE 1 GM/50 ML BAG ONE (08:40)
== END 2020-07-23 10:20 | disposition home or self-care (01) ==
LOC: JER 07:18
PROC: 3E03329 Introduction of Other Anti-infective into Peripheral Vein, Percutaneous Approach (ICD-10-PCS; principal; 2020-07-23)
PROC: 3E033GC Introduction of Other Therapeutic Substance into Peripheral Vein, Percutaneous Approach (ICD-10-PCS; 2020-07-23)
PROC: 3E0234Z Introduction of Serum, Toxoid and Vaccine into Muscle, Percutaneous Approach (ICD-10-PCS; 2020-07-23)
DX: H05.012 Cellulitis of left orbit (principal)
CPT/HCPCS: 70486-TC; 90715; 99285-25